=== PATIENT | male | born 1965 | race Native Hawaiian/Other Pacific Islander ===

== ENCOUNTER 2019-02-22 07:25 | Outpatient (CLI) | payer OTHER | END 2019-02-22 22:33 | disposition home or self-care (01) | LOC: LABW 07:25 | PROVIDERS: Family Medicine | DX: R10.9 Unspecified abdominal pain (principal); J98.11 Atelectasis | CPT/HCPCS: 36415; 80053; 82150; 82550; 83690; 84484; 85379 ==

== ENCOUNTER 2019-04-14 10:48 | Emergency (ER) | payer OTHER ==
[~2019-04-14] VITALS: Ht 167.6 cm; Wt 61.2 kg
[2019-04-14 10:54] VITALS: TEMP 98.3
[2019-04-14 13:25] VITALS: BP 121/84
== END 2019-04-14 13:27 | disposition home or self-care (01) ==
LOC: ED 10:48
DX: S09.90XA Unspecified injury of head, initial encounter (principal); W18.39XA Other fall on same level, initial encounter; Y93.89 Activity, other specified; Y92.89 Other specified places as the place of occurrence of the external cause
CPT/HCPCS: 90715; 96372; 99283

== ENCOUNTER 2019-08-01 11:01 | Outpatient (CLI) | payer OTHER | END 2019-08-01 22:05 | disposition home or self-care (01) | LOC: RAD 11:01 | DX: M54.2 Cervicalgia (principal); M25.512 Pain in left shoulder ==

== ENCOUNTER 2020-02-23 19:14 | Outpatient (CLI) | payer OTHER | END 2020-02-23 19:41 | disposition home or self-care (01) | LOC: RAD 19:14 | DX: Z20.828 Contact with and (suspected) exposure to other viral communicable diseases (principal); M54.2 Cervicalgia; M25.512 Pain in left shoulder; M25.522 Pain in left elbow; R21 Rash and other nonspecific skin eruption | CPT/HCPCS: 86308 ==

== ENCOUNTER 2020-05-14 13:28 | Outpatient (CLI) | payer OTHER | END 2020-05-14 23:07 | disposition home or self-care (01) | LOC: LAB 13:28 | PROVIDERS: ATTEND Family Medicine | DX: Z20.828 Contact with and (suspected) exposure to other viral communicable diseases (principal) | CPT/HCPCS: 87635; G2023; U0003 ==

== ENCOUNTER 2020-09-17 12:59 | Outpatient (CLI) | payer OTHER | END 2020-09-17 19:38 | disposition home or self-care (01) | LOC: LAB 12:59 | PROVIDERS: ATTEND Family Medicine | DX: Z20.828 Contact with and (suspected) exposure to other viral communicable diseases (principal) | CPT/HCPCS: 87635; G2023; U0003 ==

== ENCOUNTER 2021-04-07 15:09 | Outpatient (CLI) | payer OTHER | END 2021-04-07 22:51 | disposition home or self-care (01) | LOC: RAD 15:09 | PROVIDERS: ATTEND Family Medicine | DX: M54.9 Dorsalgia, unspecified (principal) ==

== ENCOUNTER 2021-07-12 08:10 | Outpatient (CLI) | payer OTHER | END 2021-07-12 19:01 | disposition home or self-care (01) | LOC: LAB 08:10 | PROVIDERS: ATTEND Family Medicine | DX: R50.9 Fever, unspecified (principal); J02.9 Acute pharyngitis, unspecified; R05 Cough; Z11.52 Encounter for screening for COVID-19 | CPT/HCPCS: 87635; G2023; U0003 ==

== ENCOUNTER 2022-01-16 13:54 | Outpatient (CLI) | payer OTHER | END 2022-01-16 19:14 | disposition home or self-care (01) | LOC: RAD 13:54 | PROVIDERS: ATTEND Family Medicine | DX: R06.02 Shortness of breath (principal); J44.9 Chronic obstructive pulmonary disease, unspecified; Z86.79 Personal history of other diseases of the circulatory system; Z09 Encounter for follow-up examination after completed treatment for conditions other than malignant neoplasm ==

== ENCOUNTER 2022-02-23 08:59 | Outpatient (CLI) | payer OTHER | END 2022-02-23 21:57 | disposition home or self-care (01) | LOC: RAD 08:59 | PROVIDERS: ATTEND Family Medicine | DX: M25.562 Pain in left knee (principal); M25.561 Pain in right knee ==

== ENCOUNTER 2022-03-24 14:04 | Outpatient (CLI) | payer OTHER | END 2022-03-24 19:30 | disposition home or self-care (01) | LOC: CT 14:04 | PROVIDERS: ATTEND Internal Medicine Sleep Medicine | DX: Z09 Encounter for follow-up examination after completed treatment for conditions other than malignant neoplasm (principal); Z87.891 Personal history of nicotine dependence ==

== ENCOUNTER 2023-01-25 04:18 | Emergency (ER) | payer OTHER ==
[~2023-01-25] VITALS: Ht 167.6 cm; Wt 61.7 kg
[2023-01-25 04:25] VITALS: TEMP 97.9
[2023-01-25 06:14] VITALS: BP 112/67
== END 2023-01-25 06:15 | disposition home or self-care (01) ==
LOC: ED 04:18
DX: L03.012 Cellulitis of left finger (principal); S60.455A Superficial foreign body of left ring finger, initial encounter; X58.XXXA Exposure to other specified factors, initial encounter; Y92.89 Other specified places as the place of occurrence of the external cause
CPT/HCPCS: 99282

== ENCOUNTER 2023-03-06 08:47 | Outpatient (CLI) | payer OTHER | END 2023-03-06 18:58 | disposition home or self-care (01) | LOC: RESP 08:47 | PROVIDERS: ATTEND Internal Medicine Endocrinology, Diabetes & Metabolism | DX: J44.9 Chronic obstructive pulmonary disease, unspecified (principal) ==

== ENCOUNTER 2023-06-22 08:59 | Outpatient (CLI) | payer OTHER ==
[2023-06-22 09:55] LABS: PLATELET COUNT 230 K/uL (142-355)
[2023-06-22 12:29] LABS: POTASSIUM 4.1 mmol/L (3.6-5.2)
== END 2023-06-22 18:58 | disposition home or self-care (01) ==
LOC: LABW 08:59
PROVIDERS: ATTEND Nurse Practitioner Family
DX: Z00.00 Encounter for general adult medical examination without abnormal findings (principal); Z13.21 Encounter for screening for nutritional disorder; Z13.220 Encounter for screening for lipoid disorders; Z68.23 Body mass index [BMI] 23.0-23.9, adult; Z79.899 Other long term (current) drug therapy; E55.9 Vitamin D deficiency, unspecified
CPT/HCPCS: 80053; 80061; 82306; 82607; 83036; 84153; 84443; 85027